=== PATIENT | male | born 1960 | race Caucasian/White ===

== ENCOUNTER 2018-01-24 21:03 | Observation (INO) ==
--- NOTE | 2018-01-24 23:58 | XR ---
EXAM DATE: 01/24/2018 11:54 PM EDT AGE/SEX: 58 years / Male INDICATIONS: Shortness of breath. CLINICAL DATA: This is the patient's initial encounter. Patient reports that signs and symptoms have been present for 2 days and indicates a pain score of 0/10. MEDICAL/SURGICAL HISTORY: None. None. COMPARISON: No prior exams available for comparison. FINDINGS: 2 frontal views of the chest reveal a 5.2 cm smoothly marginated superior mediastinal mass occupying the medial aspects of the left apex. The remaining lungs are clear. No infiltrate or effusion. Heart is normal in size. A degenerative spine. CONCLUSION: 5.2 cm superior mediastinal mass. CT with IV contrast can be performed to further assess if clinicall y warranted. Electronically signed by: Herbie Brenner MD 01/24/2018 11:57 PM EDT
[2018-01-25 00:10] LABS: Baso # (Auto) 0.1 th/mm3 (0.0-0.2); Baso % (Auto) 0.6 % (0.0-2.0); Eos # (Auto) 0.1 th/mm3 (0.0-0.4); Eos % (Auto) 0.6 % (0.0-4.0); Hematocrit 48.8 % (39.0-51.0); Hemoglobin 17.2 gm/dL (13.0-17.0); Lymph # (Auto) 1.4 th/mm3 (1.0-4.8); Mean Corpuscular HGB Conc 35.3 % (32.0-36.0); Mean Corpuscular Volume 87.8 fL (80.0-100.0); Mean Platelet Volume 8.8 fL (7.0-11.0); Mono # (Auto) 0.6 th/mm3 (0.0-0.9); Mono % (Auto) 5.2 % (0.0-8.0); Neut # (Auto) 9.2 th/mm3 (1.8-7.7); Neut % (Auto) 81.6 % (16.0-70.0); Platelet Count 216 th/mm3 (150-450); Red Blood Count 5.56 mil/mm3 (4.50-5.90); Red Cell Distribution Width 14.4 % (11.6-17.2); White Blood Count 11.3 th/mm3 (4.0-11.0)
[2018-01-25 01:10] LABS: Alanine Aminotransferase 35 U/L (12-78); Albumin 3.5 g/dL (3.4-5.0); Anion Gap 7 meq/L (5-15); Aspartate Aminotransferase 33 U/L (15-37); Blood Urea Nitrogen 10 mg/dL (7-18); Chloride 106 meq/L (98-107); Glomerular Filtration Rate Greater Than 89 mL/min (>89); Glucose,Random 92 mg/dL (74-106); Lipase 89 U/L (73-393); Magnesium 1.9 mg/dL (1.5-2.5); Potassium 3.9 meq/L (3.5-5.1); Sodium 142 meq/L (136-145)
[2018-01-25 01:12] LABS: Alkaline Phosphatase 113 U/L (45-117); Total Protein 6.6 g/dL (6.4-8.2)
[2018-01-25 01:13] LABS: Alcohol 76 mg/dL (0-5)
--- NOTE | 2018-01-25 03:58 | CT ---
EXAM DATE: 01/25/2018 3:43 AM EDT AGE/SEX: 58 years / Male INDICATIONS: Shortness of breath and cough. CLINICAL DATA: This is the patient's initial encounter. Patient reports that signs and symptoms have been present for 1 day and indicates a pain score of 4/10. MEDICAL/SURGICAL HISTORY: Seizures. None. RADIATION DOSE: 17.57 CTDI (mGy) COMPARISON: No prior exams available for comparison. TECHNIQUE: Volumetric scanning was performed using a multi-row detector CT scanner during bolus infu osito of 73 ml Omnipaque 350 (iohexol) nonionic water-soluble contrast as a single exam dose. The dejan a was post processed with a variety of visualization algorithms including full volume maximum intensi ty projection and sliding thin slab reformation. Using automated exposure control and adjustment of t he mA and/or kV according to patient size, radiation dose was kept as low as reasonably achievable to obtain optimal diagnostic quality images. DICOM format image data is available electronically for r eview and comparison. FINDINGS: Pulmonary Arteries: No filling defects are seen in the pulmonary arteries out to the subsegmental ve ssels. The left and right pulmonary arteries are normal in diameter. Lung: Emphysematous changes. There is an 8mm cavitary nodular density within the central portions of the left upper lobe. The lesion shows a mildly thickened wall without air-fluid level. No surroundin g inflammatory change.. Effusion: None. Mediastinum: A 5.2 x 5.0 x 3.6 cm smoothly marginated and homogeneous mass is seen involving the par aspinal soft tissues on the left within the superior mediastinum. The adjacent bony structures are un remarkable. The lesion extends slightly towards the T2 neural foramen on the left but does not quite extend into the neural foramen. I see no widening of the neural foramen. No bony destruction observed within the adjacent paraspinal structures.. Other: The axilla is unremarkable. CONCLUSION: 1. 5.2 cm paraspinal mass on the left correlates to the finding seen on the recent chest x-ray. The exact etiology is uncertain. It could relate to a schwannoma as it does extend towards the left T2 ne ural foramen. I cannot exclude other etiologies including malignancy. An outpatient follow-up PET/CT is suggested to evaluate the metabolic nature of this lesion. This lesion would be percutaneously acc essible for biopsy. 2. 8 mm cavitary nodule involving the central portion of the left upper lobe. Differential diagnosti c considerations include prior infection versus malignancy. This lesion can also be assessed at the t giovanni of PET/CT. 3. Emphysematous change. 4. No pulmonary emboli. Electronically signed by: Herbie Brenner MD 01/25/2018 3:57 AM EDT
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
[2018-01-25] MEDS ORDERED: Bisacodyl 10 MG Supp RECTAL PRN (04:37)
[2018-01-25] MEDS ORDERED: Haloperidol Inj 5 MG/ML Ampul IV.PUSH PRN (04:39)
[2018-01-25] MEDS ORDERED: LORazepam 1 MG Tablet PO PRN (04:39)
[2018-01-25] MEDS: Sod Chloride 0.9% Inj 1,000 ML IV.CONT SCH ×2 (07:01→17:59)
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
[2018-01-25] MEDS: Folic Acid 1 MG Tablet PO SCH (09:02)
[2018-01-25] MEDS: Senna/Docusate Sodium 8.6/50 MG Tablet PO SCH ×2 (09:02→21:29)
[2018-01-25] MEDS: Multivitamin/Minerals Therapeutic Tablet PO SCH (10:24)
[2018-01-25] MEDS ORDERED: Metoprolol Tartrate 25 MG Tablet PO SCH (21:00)
[2018-01-26] MEDS: Sod Chloride 0.9% Inj 1,000 ML IV.CONT SCH (05:15)
[2018-01-26 07:40] VITALS: BP 135/35; RESP 16; TEMP 97.7; O2SAT 97
--- NOTE | 2018-01-26 08:31 | P.PN ---
Subjective Interval history: awake and alert, no complains no chest discomfort telemtry- sinus rate- in the 50s- low 60s Physical Exam Vital signs: Vital Signs 01/25/18 11:30 01/25/18 15:53 01/25/18 19:55 Temperature 98.2 F 98.1 F 98.0 F Pulse Rate 83 65 63 Respiratory Rate 16 16 16 Blood Pressure 162/100 H 142/85 H 142/81 H Pulse Oximetry 97 96 99 01/25/18 20:00 01/26/18 00:00 01/26/18 02:10 Temperature Pulse Rate 60 60 54 L Respiratory Rate 22 Blood Pressure 155/85 H Pulse Oximetry 98 01/26/18 07:37 Temperature 97.7 F Pulse Rate 59 L Respiratory Rate 16 Blood Pressure 135/35 L Pulse Oximetry 97 Intake & Output 01/25/18 01/26/18 01/26/18 18:59 06:59 18:59 Intake Total 958 / 958 1000 / 1000 Balance 958 / 958 1000 / 1000 Weight 83.915 kg Intake: IV 958 / 958 1000 / 1000 NS Inj 1,000 ML @ 50 mls/hr IV. 958 / 958 1000 / 1000 CONT .Q20H S[facility] Rx#:[id number] Other: # Voids 1 Weight On Admission 83.915 kg Results - Labs CBC & Chem 7: 01/26/18 09:53 01/26/18 09:53 Assessment and Plan - Plan 58-year-old male known history of chronic alcoholism presenting with DTs with history of chronic alcoholism - Relapse. Patient placed on C1wa protocol Patient states familiar with treatment programs and has all the information. home with po [employer]ir[employer] scripts History of hypertension -not on meds. elevated Bps and TAcycardia on admission from DTs- As needed clonidine. Lopressor 12.5 mg po bid- will DC- HR goes down into 50s - sinus - change to amlodipine 2.5 mg po daily - start on po Librium Incidental chest mass. -Recommend outpatient PET scan to further evaluate this. - Patient states that he and was informed about this last evening and she is setting up an appointment -her PCP for further workup- today. Per patient his is arranging for this. Chronic smoker patient counseled extensively PT eval and treat up and ambulate. if comes- will talk to her- DC plans very involved with care - s/w her DC home today manuel appt for chest mass evaluation today ff up with PCP- d/w about problenm starting him on some antidepressant- "no drive-" she will d/w his PCP
[2018-01-26] MEDS: Senna/Docusate Sodium 8.6/50 MG Tablet PO SCH (08:52)
[2018-01-26] MEDS: Folic Acid 1 MG Tablet PO SCH (08:52)
[2018-01-26] MEDS: Multivitamin/Minerals Therapeutic Tablet PO SCH (08:52)
[2018-01-26] MEDS ORDERED: amLODIPine 5 MG Tablet PO SCH (09:00)
[2018-01-26 10:57] LABS: Baso % (Auto) 0.4 % (0.0-2.0); Eos # (Auto) 0.1 th/mm3 (0.0-0.4); Eos % (Auto) 2.3 % (0.0-4.0); Hematocrit 46.2 % (39.0-51.0); Hemoglobin 15.6 gm/dL (13.0-17.0); Lymph % (Auto) 15.7 % (9.0-44.0); Mean Corpuscular HGB Conc 33.8 % (32.0-36.0); Mean Corpuscular Hemoglobin 30.6 pg (27.0-34.0); Mean Corpuscular Volume 90.5 fL (80.0-100.0); Mono # (Auto) 0.5 th/mm3 (0.0-0.9); Mono % (Auto) 8.2 % (0.0-8.0); Neut # (Auto) 4.5 th/mm3 (1.8-7.7); Neut % (Auto) 73.4 % (16.0-70.0); Platelet Count 143 th/mm3 (150-450); Red Cell Distribution Width 14.4 % (11.6-17.2); White Blood Count 6.2 th/mm3 (4.0-11.0)
[2018-01-26 11:25] LABS: Alanine Aminotransferase 28 U/L (12-78); Albumin 3.1 g/dL (3.4-5.0); Anion Gap 5 meq/L (5-15); Aspartate Aminotransferase 25 U/L (15-37); Blood Urea Nitrogen 8 mg/dL (7-18); Calcium 9.7 mg/dL (8.5-10.1); Carbon Dioxide 25.8 meq/L (21.0-32.0); Chloride 108 meq/L (98-107); Glomerular Filtration Rate Greater Than 89 mL/min (>89); Glucose,Random 87 mg/dL (74-106); Potassium 4.2 meq/L (3.5-5.1); Sodium 139 meq/L (136-145)
[2018-01-26 11:27] LABS: Alkaline Phosphatase 109 U/L (45-117); Total Protein 6.3 g/dL (6.4-8.2)
[2018-01-26 11:35] VITALS: PULSE 52
== END 2018-01-26 15:03 | disposition home or self-care (01) ==
LOC: NEPGCP 21:03 → NEDA 21:03 → NEPC 21:03 → NEDH 01-25 09:52 → NEPGCP 01-25 11:25
PROVIDERS: ADMIT Internal Medicine; ATTEND Internal Medicine

== ENCOUNTER 2018-03-21 05:35 | Inpatient (IN) ==
[2018-03-21] MEDS ORDERED: Metoprolol Tartrate 25 MG Tablet PO ONE (05:57)
[2018-03-21] MEDS ORDERED: Chlorhexidine Gluconate 2% 1 Pack (2 Cloths) TOPICAL ONE (05:57)
[2018-03-21] MEDS ORDERED: Sodium Chlor 0.9% Inj 500 ML IV.SIG SCH (06:00)
[2018-03-21] MEDS ORDERED: Bupivacaine 0.5% Inj 50 ML MDV Vial ONE (06:43)
[2018-03-21] MEDS ORDERED: ceFAZolin 2 GM Premix Inj 2 GM/50 ML PIGGYBACK IV.SIG ONE (06:43)
[2018-03-21] MEDS ORDERED: Ketamine Inj 50 MG/5 ML Syringe IV.PUSH ONE (06:49)
[2018-03-21] MEDS ORDERED: Sodium Chlor 0.9% Inj 20 ML, Bupivacaine Liposo PF 1.3% Inj 20 ML, Dexamethasone PF Inj... IRRIGATION ONE ×4 (07:00)
[2018-03-21] MEDS ORDERED: Lidocaine PF 1% Inj 5 ML Syringe OTHER ONE (07:32)
[2018-03-21] MEDS ORDERED: Normosol-R pH 7.4 Inj 1,000 ML IV.CONT ONE (07:32)
[2018-03-21] MEDS ORDERED: Neostigmine Inj 5 MG/5 ML Syringe IV.PUSH ONE (07:32)
[2018-03-21] MEDS ORDERED: Dextrose 5%/Lactated Ringer's 1,000 ML IV.CONT ONE (07:32)
[2018-03-21] MEDS ORDERED: Glycopyrrolate Inj 1 MG/5 ML Syringe IV.PUSH ONE (07:32)
[2018-03-21] MEDS ORDERED: Phenylephrine/NS 1000 MCG/10ML Syringe IV.PUSH ONE (07:32)
[2018-03-21] MEDS ORDERED: Bisacodyl 10 MG Supp RECTAL PRN (10:14)
[2018-03-21] MEDS ORDERED: Post-op Orders (for Pharmacy) OTHER STA (10:14)
[2018-03-21] MEDS ORDERED: Acetaminophen 325 MG Tablet PO PRN (10:14)
--- NOTE | 2018-03-21 10:26 | P.OP ---
Date of procedure: 03/21/18 Anesthesia: GETA Surgeon: Nataliia Baker MD Operation and Findings: PREOPERATIVE DIAGNOSIS 1. Left large Posterior Mediastinal Mass-Schwannoma 2. Aortopulmonary window lymphadenopathy 3. COPD POSTOPERATIVE DIAGNOSIS same PROCEDURES 1. Left video-assisted thoracoscopic surgery (VATS) 2. Left Posterolateral Muscle Sparing Thoracotomy 2. Resection of posterior mediastinal mass 3. Aortopulmonary window Lymph Node Excision 4. Cryo nerve block 5. Pharmacologic Intercostal Nerve Block SURGEON Nataliia Baker MD GEOSPATIAL PROGRAM MANAGEMENT OFFICER JAYLEN Morocho ANESTHESIA General double-lumen endotracheal. LABORER DEMOLITION Julienne Mello, AVERY Frausto MD DRAINS [address] COUNTS Needle, sponge, and instrument counts were correct. COMPLICATIONS None. INDICATION FOR PROCEDURE The patient is a 58yo gentleman with a large left posterior mediastinal mass consistent with a Schwannoma, presenting for surgical resection of above pathology. DESCRIPTION OF PROCEDURE The patient was brought to the operating suite and placed in supine position. Following satisfactory induction of general double-lumen endotracheal anesthesia , the patient was placed in the right lateral decubitus position. The left chest and surrounding area was then prepped and draped in the usual sterile fashion. A 5 mm camera port was then placed in the eighth intercostal space mid axillary line. Exploration of the left hemithorax revealed a large posterior mediastinal mass abutting but not invading the descending thoracic aorta. Plans were made to proceed with a formal resection. A standard muscle- sparing posterolateral thoracotomy was performed and the serratus anterior muscle spared. The pleural space was entered. The 5 cm posterior mediastinal mass was then excised en bloc. It appeared to be emanating from the T2 nerve sheath which was transected with the mass. Specimen was removed from the chest. Strict hemostasis was ensured. Attention was then directed towards the aorta from the window lymph node which was noted to be PET active. The pleura overlying the lymph node was excised care being taken to avoid injury to the phrenic and recurrent laryngeal nerves. The lymph node was dissected free and excised en bloc and sent for histologic analysis. At this point the closure was undertaken. A 28-Bel[place]an chest tube was placed. Cryo nerve block was performed using the AtriCure Cryo-probe at the level of the incision as well as two intercostal spaces above and below. Tissell was sprayed along the bed of the specimen. Pharmacologic intercostal nerve block was performed at the level of the incision and 2 rib spaces above and below using Exparel with Decadron solution. The pericostal space was approximated with interrupted #1 Vicryl sutures in a pericostal fashion. The serratus fascia and Latissimus dorsi were closed with running 0-Vicryl and the remaining wounds closed with 3-0, and 4-0 Monocryl. The patient tolerated the procedure well and postoperatively went to the PACU in stable condition.
[2018-03-21] MEDS ORDERED: fentaNYL Citrate Inj 100 MCG/2 ML Ampul ONE (10:43)
[2018-03-21] MEDS ORDERED: *morphine SULFATE 8 MG/ML PERIprocedure ONLY ONE ×2 (11:09→11:20)
--- NOTE | 2018-03-21 11:36 | XR ---
EXAM DATE: 03/21/2018 10:14 AM EDT AGE/SEX: 58 years / Male INDICATIONS: Post-op Thoracotomy, left side chest. CLINICAL DATA: This is the patient's initial encounter. Patient reports that signs and symptoms have been present for 1 day and indicates a pain score of 7/10. MEDICAL/SURGICAL HISTORY: Hypertension. None. COMPARISON: C, CHEST 2V PA&LAT, 03/14/2018. . FINDINGS: Interval postoperative features of left-sided thoracotomy with left apical chest tube in place. There is a trace amount of left apical pneumothorax. Left apical mass is no longer visualized. Cardiomedia stinal contours are within normal limits. Small amount of subcutaneous emphysema in the left chest w all. CONCLUSION: 1. Expected postoperative features of left-sided thoracotomy with left apical chest tube in place an d trace left apical pneumothorax. Electronically signed by: Esequiel Camacho MD 03/21/2018 11:34 AM EDT
[2018-03-21] MEDS: Ketorolac Inj 30 MG/ML (IVP) Vial IV.PUSH SCH ×2 (11:37→17:00)
--- NOTE | 2018-03-21 12:49 | P.PNCV ---
- Note Subjective/Hospital Course: 58/ male initially seen by Dr Baker in [facility] 03/07/18 presented with new findings of a large posterior mediastinal mass . Recovering alcoholic and was admitted for detox in Jan 2018, after a relapse. CXR at that time revealed left apical lung abnormality. Pet scan demonstrated a 5.2cm Schannoma of the T2 nerve seat with associated AP window and hilar PET positive lymph nodes PMH: alcoholism, COPD, Chronic nicotine use 03/21 pt electively admitted for surgery PREOPERATIVE DIAGNOSIS 1. Left large Posterior Mediastinal Mass-Schwannoma 2. Aortopulmonary window lymphadenopathy 3. COPD POSTOPERATIVE DIAGNOSIS same PROCEDURES 1. Left video-assisted thoracoscopic surgery (VATS) 2. Left Posterolateral Muscle Sparing Thoracotomy 2. Resection of posterior mediastinal mass 3. Aortopulmonary window Lymph Node Excision Objective: Vital Signs - 24 hr 03/21/18 06:10 03/21/18 10:31 03/21/18 10:45 Temperature 97.7 F 97.4 F L Pulse Rate 64 80 68 Respiratory Rate 20 14 11 L Blood Pressure 135/89 116/75 113/77 Pulse Oximetry 99 98 98 03/21/18 11:00 03/21/18 11:15 03/21/18 11:30 Temperature Pulse Rate 77 75 66 Respiratory Rate 18 15 12 Blood Pressure 108/68 128/78 107/71 Pulse Oximetry 98 100 98 03/21/18 11:45 03/21/18 12:15 Temperature 97.2 F L 97.4 F L Pulse Rate 69 70 Respiratory Rate 14 18 Blood Pressure 112/71 98/64 L Pulse Oximetry 98 97 Labs: Laboratory Results - last 12 hr 03/21/18 03/21/18 06:25 07:17 Blood Type A Positive Blood Type Recheck Required Antibody Screen Negative MTS Gel Crossmatch See Detail Bld Prod Order Comment
[2018-03-21] MEDS: Senna/Docusate Sodium 8.6/50 MG Tablet PO SCH (20:38)
[2018-03-21] MEDS ORDERED: traZODone 100 MG Tablet PO SCH (21:00)
[2018-03-21] MEDS ORDERED: Mirtazapine 15 MG Tablet PO SCH (21:00)
[2018-03-22] MEDS: Ketorolac Inj 30 MG/ML (IVP) Vial IV.PUSH SCH ×2 (00:03→05:52)
[2018-03-22 05:41] LABS: Hematocrit 40.4 % (39.0-51.0); Hemoglobin 13.7 gm/dL (13.0-17.0); Lymph # (Auto) 0.8 th/mm3 (1.0-4.8); Lymph % (Auto) 5.4 % (9.0-44.0); Mean Corpuscular HGB Conc 33.8 % (32.0-36.0); Mean Corpuscular Hemoglobin 30.6 pg (27.0-34.0); Mean Corpuscular Volume 90.5 fL (80.0-100.0); Mean Platelet Volume 9.6 fL (7.0-11.0); Mono # (Auto) 0.9 th/mm3 (0.0-0.9); Mono % (Auto) 5.7 % (0.0-8.0); Neut # (Auto) 13.3 th/mm3 (1.8-7.7); Neut % (Auto) 88.9 % (16.0-70.0); Platelet Count 196 th/mm3 (150-450); Red Blood Count 4.46 mil/mm3 (4.50-5.90); Red Cell Distribution Width 14.5 % (11.6-17.2); White Blood Count 14.9 th/mm3 (4.0-11.0)
[2018-03-22 06:10] LABS: Anion Gap 4 meq/L (5-15); Blood Urea Nitrogen 11 mg/dL (7-18); Calcium 10.1 mg/dL (8.5-10.1); Carbon Dioxide 26.8 meq/L (21.0-32.0); Chloride 108 meq/L (98-107); Glomerular Filtration Rate Greater Than 89 mL/min (>89); Glucose,Random 121 mg/dL (74-106); Potassium 4.6 meq/L (3.5-5.1); Sodium 139 meq/L (136-145)
[2018-03-22 07:53] VITALS: RESP 18; O2SAT 98
[2018-03-22] MEDS: Senna/Docusate Sodium 8.6/50 MG Tablet PO SCH (08:54)
[2018-03-22] MEDS ORDERED: Folic Acid 1 MG Tablet PO SCH (09:00)
[2018-03-22] MEDS ORDERED: amLODIPine 5 MG Tablet PO SCH (09:00)
--- NOTE | 2018-03-22 09:33 | P.PNCV ---
- Note Subjective/Hospital Course: 58/ male initially seen by Dr Baker in [facility] 03/07/18 presented with new findings of a large posterior mediastinal mass . Recovering alcoholic and was admitted for detox in Jan 2018, after a relapse. CXR at that time revealed left apical lung abnormality. Pet scan demonstrated a 5.2cm Schannoma of the T2 nerve seat with associated AP window and hilar PET positive lymph nodes PMH: alcoholism, COPD, Chronic nicotine use 03/21 pt electively admitted for surgery PREOPERATIVE DIAGNOSIS 1. Left large Posterior Mediastinal Mass-Schwannoma 2. Aortopulmonary window lymphadenopathy 3. COPD POSTOPERATIVE DIAGNOSIS same PROCEDURES 1. Left video-assisted thoracoscopic surgery (VATS) 2. Left Posterolateral Muscle Sparing Thoracotomy 2. Resection of posterior mediastinal mass 3. Aortopulmonary window Lymph Node Excision 03/22 doing well, pain at incision site 10/13 chest tube site 11/13 last dose of narcotic yesterday/ currently receiving IV Tylenol also prn Toradol encourage pulm toileting OOB ambulate/ drained 80cc/ 12 hrs , but has not ambulated in hallway path pending Objective: Vital Signs - 24 hr 03/21/18 10:31 03/21/18 10:45 03/21/18 11:00 Temperature 97.4 F L Pulse Rate 80 68 77 Respiratory Rate 14 11 L 18 Blood Pressure 116/75 113/77 108/68 Pulse Oximetry 98 98 98 03/21/18 11:15 03/21/18 11:30 03/21/18 11:45 Temperature 97.2 F L Pulse Rate 75 66 69 Respiratory Rate 15 12 14 Blood Pressure 128/78 107/71 112/71 Pulse Oximetry 100 98 98 03/21/18 12:00 03/21/18 12:15 03/21/18 13:00 Temperature 97.4 F L Pulse Rate 68 70 56 L Respiratory Rate 18 Blood Pressure 98/64 L Pulse Oximetry 97 03/21/18 13:09 03/21/18 14:00 03/21/18 15:00 Temperature Pulse Rate 60 68 Respiratory Rate Blood Pressure Pulse Oximetry 98 03/21/18 16:00 03/21/18 17:00 03/21/18 17:48 Temperature 97.5 F L Pulse Rate 63 56 L Respiratory Rate 16 Blood Pressure 100/67 Pulse Oximetry 97 97 03/21/18 18:00 03/21/18 19:15 03/21/18 20:00 Temperature 97.5 F L Pulse Rate 56 L 72 64 Respiratory Rate 22 Blood Pressure 109/73 Pulse Oximetry 97 03/21/18 21:00 03/21/18 22:00 03/21/18 23:00 Temperature Pulse Rate 54 L 58 L 57 L Respiratory Rate Blood Pressure Pulse Oximetry 03/22/18 00:00 03/22/18 01:00 03/22/18 02:00 Temperature 97.5 F L Pulse Rate 56 L 56 L 58 L Respiratory Rate 22 Blood Pressure 106/66 Pulse Oximetry 97 03/22/18 03:06 03/22/18 04:00 03/22/18 05:00 Temperature 97.6 F Pulse Rate 58 L 56 L 56 L Respiratory Rate 22 Blood Pressure 94/54 L Pulse Oximetry 97 03/22/18 06:00 03/22/18 07:51 Temperature 97.4 F L Pulse Rate 54 L 55 L Respiratory Rate 18 Blood Pressure 98/56 L Pulse Oximetry 98 GENERAL: A&O x 3 SKIN: Warm and dry. incision intact left posterior chest wall HEAD: Normocephalic. EYES: No scleral icterus. No injection or drainage. NECK: Supple, trachea midline. No JVD or lymphadenopathy. CARDIOVASCULAR: Regular rate and rhythm without murmurs, gallops, or rubs. RESPIRATORY: Breath sounds equal bilaterally. No accessory muscle use. few coarse breath sounds / chest tube to wall suction / no air leak GASTROINTESTINAL: Abdomen soft, non-tender, nondistended. MUSCULOSKELETAL: No cyanosis, or edema. BACK: Nontender without obvious deformity. No CVA tenderness. Labs: Laboratory Results - last 12 hr 03/22/18 03/22/18 05:09 05:09 WBC 14.9 H RBC 4.46 L Hgb 13.7 Hct 40.4 MCV 90.5 MCH 30.6 MCHC 33.8 RDW 14.5 Plt Count 196 MPV 9.6 Neut % (Auto) 88.9 H Lymph % (Auto) 5.4 L [place] % (Auto) 5.7 Eos % (Auto) 0.0 Baso % (Auto) 0.0 Neut # (Auto) 13.3 H Lymph # (Auto) 0.8 L [place] # (Auto) 0.9 Eos # (Auto) 0.0 Baso # (Auto) 0.0 WBC Differential . Differential Comment Auto diff final Sodium 139 Potassium 4.6 Chloride 108 H Carbon Dioxide 26.8 Anion Gap 4 L BUN 11 Creatinine 0.80 Estimated GFR Greater than 89 Random Glucose 121 H Calcium 10.1 Result Diagrams: 03/22/18 05:09 03/22/18 05:09 - Plan (3) S/P thoracotomy Plan: pulm toielting pain control OOB ambulate leave chest tube in for now path pending
--- NOTE | 2018-03-22 09:37 | P.DCO ---
- Diagnosis (1) Paraspinal mass Status: Acute (2) Mass of lung Status: Acute (3) S/P thoracotomy Status: Acute - Home Health Nursing Order: Medical education, Signs/symptoms of disease process, Wound care and dressing changes, Nursing assessment with vital signs Instructions: Thoracic Surgery patients Mandatory frequency Assess and evaluation, 2-3 x a week for one week Initial visit 1. Review post chest surgery instructions chest precautions, Activity, Elastic hose, Incision care, Driving, Incentive spirometry, Smoking, [place] , Work and other) 2. Need Betadine to paint incision 3. Medication reconciliation 4. Importance of follow up care/ check on appointments 5. Make calendar record temperature daily 6. When to call Home nurse, review instructions, phone list 7. Incentive Spirometry, demonstration Visit 1- Begin discharge instruction for patient family and/ or caregiver using teach back method- 1. Signs and symptoms of infection 2. Disease characteristics 3. Medicines and side effects 4. Foods and nutrition/ appetite 5. Infection control/ hand washing/ hygiene Visit 2- Continue teaching 1. Discharge instructions- include additional information on smoking cessation , Visit 3- Continue teaching- 1. Cough and deep breathing, incision monitoring. For any questions please call : / [employer] [facility] Cardiothoracic Surgery Incentive spirometry Q1 hr x 10, while awake, also use acapella device hourly whole Chest wall precautions: NO pushing or pulling, ( pt must use chest pillow support chest with all activities and with coughing Daily incision care: ok to shower ( 48hrs after chest tube removed) and then daily, no tub bath. Wash all incisions with liquid dial soap, clean wash cloth to each site, rinse and pat dry. Observe for any signs of infection, such as drainage which is dark yellow, roldan, green or foul smelling. Immediately report to the surgeon any drainage from the chest incision, or legs, and for any abnormal drainage from the chest tube sites. Notify surgeon if any temp > 101.5 degrees F. When specialty dressing removed/ or if you do not have one, continue to shower daily as above, then rinse and pat incision dry and paint with betadine daily x 5 days. Allow steri strips to fall off if you have any. Avoid lotions, creams, salves, oils, etc. for the first month F/U appointment: as per [place] instructions: PCP in 2 weeks, CV surgeon 2 weeks, Automation Architect 3-4 weeks For any questions regarding incisions/ dressing / meds / post op care or above Symptoms, Tuesday 8am-5pm Heart & Vascular Surgery Office ( Dr. Baker & Dr. Bains), After Hours / Nights (5pm -8am) Weekends and Holidays Please call [facility] Cardiac Intermediate Care Unit (CIC) Charge Nurse - Case Management Consult Yes - Certification I have seen patient Louis Pineda on 03/22/18. My clinical findings support the need for the requested home health care services because: Deconditioned with increased weakness I certify that my clinical findings support that this patient is homebound because: Post-op weakness, Hx COPD - exertion dyspnea/weakness
--- NOTE | 2018-03-22 11:03 | XR ---
EXAM DATE: 03/22/2018 10:14 AM EDT AGE/SEX: 58 years / Male INDICATIONS: Post thoracotomy left side 2 days ago. CLINICAL DATA: This is the patient's subsequent encounter. Patient reports that signs and symptoms h ave been present for 2 days and indicates a pain score of 4/10. MEDICAL/SURGICAL HISTORY: Hypertension. None. COMPARISON: [facility] [place] CHEST 1V SINGLE AP, 03/21/2018. . FINDINGS: Large bore chest tube in place on the left with minimal subcutaneous emphysema. Trace left pneumothor ax. Right lung clear The heart and pulmonary vascularity are normal. CONCLUSION: Left chest tube in good position trace left pneumothorax. Electronically signed by: Adrian Perez MD 03/22/2018 11:01 AM EDT
--- NOTE | 2018-03-22 11:19 | P.DS ---
Date of admission: 03/21/18 05:35 Primary care physician: Rakesh Barahona JR DO Attending physician on discharge: Nataliia Baker Anticipated date of discharge: 03/22/18 Brief History from admission: 58/ male initially seen by Dr Baker in Office 03/07/18 presented with new findings of a large posterior mediastinal mass . Recovering alcoholic and was admitted for detox in Jan 2018, after a relapse. CXR at that time revealed left apical lung abnormality. Pet scan demonstrated a 5.2cm Schannoma of the T2 nerve seat with associated AP window and hilar PET positive lymph nodes PMH: alcoholism, COPD, Chronic nicotine use 03/21 pt electively admitted for surgery PREOPERATIVE DIAGNOSIS 1. Left large Posterior Mediastinal Mass-Schwannoma 2. Aortopulmonary window lymphadenopathy 3. COPD Patient update on day of discharge: pt doing well, chest tube removed without difficulty await f/u CXR if stable then will dc home DS: Diagnosis - Discharge Diagnosis (1) Paraspinal mass Status: Acute (2) Mass of lung Status: Acute (3) S/P thoracotomy Status: Acute (4) Alcohol abuse Status: Acute DS: Medications - Discharge Medications Prescriptions: hydrocodone-acetaminophen 1 tab PO Q4H PRN #30 tab PRN Reason: Pain Scale 3 To 5 DS: Summary Hospital Course: 58/ male initially seen by Dr Baker in Office 03/07/18 presented with new findings of a large posterior mediastinal mass . Recovering alcoholic and was admitted for detox in Jan 2018, after a relapse. CXR at that time revealed left apical lung abnormality. Pet scan demonstrated a 5.2cm Schannoma of the T2 nerve seat with associated AP window and hilar PET positive lymph nodes PMH: alcoholism, COPD, Chronic nicotine use 03/21 pt electively admitted for surgery PREOPERATIVE DIAGNOSIS 1. Left large Posterior Mediastinal Mass-Schwannoma 2. Aortopulmonary window lymphadenopathy 3. COPD POSTOPERATIVE DIAGNOSIS same PROCEDURES 1. Left video-assisted thoracoscopic surgery (VATS) 2. Left Posterolateral Muscle Sparing Thoracotomy 2. Resection of posterior mediastinal mass 3. Aortopulmonary window Lymph Node Excision 03/22 doing well, pain at incision site 5/10 chest tube site 6/10 last dose of narcotic yesterday/ currently receiving IV Tylenol also prn Toradol encourage pulm toileting OOB ambulate/ drained 80cc/ 12 hrs , but has not ambulated in hallway / no air leak path pending chest tube dc without difficulty await f/u CXR if stable then dc home - Time Spent with Patient Total time spent providing and/or coordinating discharge services: Greater than 30 minutes - Quality: VTE Deep Vein Thrombosis/Pulmonary Embolism Present on Admission: No Exam Vital signs: Vital Signs 03/21/18 11:15 03/21/18 11:30 03/21/18 11:45 Temperature 97.2 F L Pulse Rate 75 66 69 Respiratory Rate 15 12 14 Blood Pressure 128/78 107/71 112/71 Pulse Oximetry 100 98 98 03/21/18 12:00 03/21/18 12:15 03/21/18 13:00 Temperature 97.4 F L Pulse Rate 68 70 56 L Respiratory Rate 18 Blood Pressure 98/64 L Pulse Oximetry 97 03/21/18 13:09 03/21/18 14:00 03/21/18 15:00 Temperature Pulse Rate 60 68 Respiratory Rate Blood Pressure Pulse Oximetry 98 03/21/18 16:00 03/21/18 17:00 03/21/18 17:48 Temperature 97.5 F L Pulse Rate 63 56 L Respiratory Rate 16 Blood Pressure 100/67 Pulse Oximetry 97 97 03/21/18 18:00 03/21/18 19:15 03/21/18 20:00 Temperature 97.5 F L Pulse Rate 56 L 72 64 Respiratory Rate 22 Blood Pressure 109/73 Pulse Oximetry 97 03/21/18 21:00 03/21/18 22:00 03/21/18 23:00 Temperature Pulse Rate 54 L 58 L 57 L Respiratory Rate Blood Pressure Pulse Oximetry 03/22/18 00:00 03/22/18 01:00 03/22/18 02:00 Temperature 97.5 F L Pulse Rate 56 L 56 L 58 L Respiratory Rate 22 Blood Pressure 106/66 Pulse Oximetry 97 03/22/18 03:06 03/22/18 04:00 03/22/18 05:00 Temperature 97.6 F Pulse Rate 58 L 56 L 56 L Respiratory Rate 22 Blood Pressure 94/54 L Pulse Oximetry 97 03/22/18 06:00 03/22/18 07:00 03/22/18 07:51 Temperature 97.4 F L Pulse Rate 54 L 54 L 55 L Respiratory Rate 18 Blood Pressure 98/56 L Pulse Oximetry 98 03/22/18 08:00 03/22/18 09:00 03/22/18 10:00 Temperature Pulse Rate 52 L 62 55 L Respiratory Rate Blood Pressure Pulse Oximetry 03/22/18 11:00 Temperature Pulse Rate 60 Respiratory Rate Blood Pressure Pulse Oximetry Intake & Output 03/21/18 03/22/18 03/22/18 18:59 06:59 18:59 Intake Total 2690 / 2690 580 / 580 100 / 100 Output Total 532 / 532 980 / 980 Balance 2158 / 2158 -400 / -400 100 / 100 Weight 92 kg Intake: IV 150 / 150 100 / 100 100 / 100 Ancef 2 GM Premix Inj 2 gm In 50 / 50 50 ml @ 0 mls/hr IV.SIG .STK- MED ONE Rx#:[id number] Ancef Inj 1,000 MG In NS Inj 100 / 100 100 / 100 100 / 100 100 ML @ 200 mls/hr IV.SIG Q8H SAVANA Rx#:[id number] Oral 940 / 940 480 / 480 Anesthesia Amount 1600 / 1600 Output: Urine 900 / 900 Estimated Blood Loss 75 / 75 Urine Amount (Catheter) 425 / 425 Indwelling Urethral Catheter 425 / 425 Chest Tube Drainage 32 / 80 / 80 #1 Left Pleural 80 / 80 Other: Date of Last Bowel Movement 03/21/18 - Constitutional no acute distress - Routine HEENT Exam Head: Present: normocephalic, atraumatic - Routine Neck Exam Present: supple, full ROM - Routine Chest/Breast/Axilla Exam Chest wall: Present: tenderness - Routine Respiratory Exam Present: CTA bilaterally - Routine Cardiovascular Exam Present: RRR, S1, S2 - Routine Abdominal Exam Present: soft, normoactive bowel sounds - Routine Extremities Exam Present: full ROM, pulses intact, normal capillary refill - Routine Skin Exam Present: intact, wounds Comments: vaseline dressing to left chest tube site left posterior chest wall incision intact and well approximated - Routine Neurological Exam Present: alert, oriented X3, CN II-XII intact Results Procedures completed during hospitalization: Date of procedure: 03/21/18 Anesthesia: SERENITYA Surgeon: Nataliia Baker MD Operation and Findings: PREOPERATIVE DIAGNOSIS 1. Left large Posterior Mediastinal Mass-Schwannoma 2. Aortopulmonary window lymphadenopathy 3. COPD POSTOPERATIVE DIAGNOSIS same PROCEDURES 1. Left video-assisted thoracoscopic surgery (VATS) 2. Left Posterolateral Muscle Sparing Thoracotomy 2. Resection of posterior mediastinal mass 3. Aortopulmonary window Lymph Node Excision 4. Cryo nerve block 5. Pharmacologic Intercostal Nerve Block Pending studies at discharge: Pending at discharge 03/21/18 11:04 Surgical [PTH] Routine Labs on day of discharge: Labs from last 24 hours 03/22/18 03/22/18 03/21/18 05:09 05:09 07:17 WBC 14.9 H RBC 4.46 L Hgb 13.7 Hct 40.4 MCV 90.5 MCH 30.6 MCHC 33.8 RDW 14.5 Plt Count 196 MPV 9.6 Neut % (Auto) 88.9 H Lymph % (Auto) 5.4 L [place] % (Auto) 5.7 Eos % (Auto) 0.0 Baso % (Auto) 0.0 Neut # (Auto) 13.3 H Lymph # (Auto) 0.8 L [place] # (Auto) 0.9 Eos # (Auto) 0.0 Baso # (Auto) 0.0 WBC Differential . Differential Comment Auto diff final Sodium 139 Potassium 4.6 Chloride 108 H Carbon Dioxide 26.8 Anion Gap 4 L BUN 11 Creatinine 0.80 Estimated GFR Greater than 89 Random Glucose 121 H Calcium 10.1 MTS Gel Crossmatch See Detail Bld Prod Order Comment - Impressions ITS Impressions Chest X-Ray 03/22/18 10:14 CONCLUSION: Left chest tube in good position trace left pneumothorax. Discharge Plan - Discharge Disposition Patient Disposition: W/Home Health Service - Discharge Condition Condition: Good - Discharge Order Discharge Orders: Discharge Order (Routine); Ordered 03/22/18 Ordered By: Yoly Gaviria - Discharge Details Anticipated Discharge Date: 03/22/18 Discharge Comment: after cxr resulted and stable - Physicians Team Primary Care Provider: Rakesh Barahona JR Attending Provider: Nataliia Baker Other Providers: Wu Kasper MD - Rxs /Orders / Referrals /Forms Prescriptions: New docusate sodium [Stool Softener] 50 mg Capsule 100 mg PO DAILY Qty: 30 RF: 0 hydrocodone-acetaminophen 5-325 mg Tablet 1 tab PO Q4H PRN (Reason: Pain Scale 3 To 5) Qty: 30 RF: 0 Continue amlodipine [Norvasc] 5 mg tablet 5 mg PO DAILY folic acid 1 mg Tablet 1 mg PO DAILY Qty: 30 RF: 0 mirtazapine [Remeron] 15 mg Tablet 15 mg PO HS [id number]-[id number] [Thera M Plus (ferrous fumarat)] 9 mg iron-400 mcg Tablet 1 tab PO DAILY Qty: 30 RF: 0 trazodone 100 mg Tablet 100 mg PO HS Referrals: Rakesh Barahona JR, [Primary Care Provider] - See Instructions ( Your appointment has been scheduled for [03/29/18] at [11:15 am] If you cannot make this appointment, please call the office to reschedule ) Nataliia Baker MD [Physician] - See Instructions ( Your appointment has been scheduled for [04/03/18] at [1:15 pm] If you cannot make this appointment, please call the office to reschedule ) Wu Kasper MD [Physician] - See Instructions ( Your appointment has been scheduled for [04/05/18] at [3:00 pm] If you cannot make this appointment, please call the office to reschedule ) - Discharge Instructions Patient Printed Instructions: Thoracotomy (DC) Additional Instructions: Incentive spirometry Q1 hr x 10, while awake, also use acapella device hourly whole Chest wall precautions: NO pushing or pulling, ( pt must use chest pillow support chest with all activities and with coughing Daily incision care: ok to shower ( 48hrs after chest tube removed) and then daily, no tub bath. Wash all incisions with liquid dial soap, clean wash cloth to each site, rinse and pat dry. Observe for any signs of infection, such as drainage which is dark yellow, roldan, green or foul smelling. Immediately report to the surgeon any drainage from the chest incision, or legs, and for any abnormal drainage from the chest tube sites. Notify surgeon if any temp > 101.5 degrees F. When specialty dressing removed/ or if you do not have one, continue to shower daily as above, then rinse and pat incision dry and paint with betadine daily x 5 days. Allow steri strips to fall off if you have any. Avoid lotions, creams, salves, oils, etc. for the first month For Dr. Bains patients , please obtain PA & Lat CXR in 2 weeks, results to Dr. Bains ( prescription will be given) ( ) (Tele: ) , F/U appointment: as per [place] instructions: PCP in 2 weeks, CV surgeon 2 weeks, Blueberry Grower 3-4 weeks For any questions regarding incisions/ dressing / meds / post op care or above Symptoms, Tuesday 8am-5pm Heart & Vascular Surgery Office ( Dr. Baker & Dr. Bains), After Hours / Nights (5pm -8am) Weekends and Holidays Please call [facility] Cardiac Intermediate Care Unit (CIC) Charge Nurse
[2018-03-22 11:29] VITALS: BP 111/68; TEMP 97.5
--- NOTE | 2018-03-22 12:41 | XR ---
EXAM DATE: 03/22/2018 12:00 PM EDT AGE/SEX: 58 years / Male INDICATIONS: Evaluate for pneumothorax. Chest tube removal. CLINICAL DATA: This is the patient's subsequent encounter. Patient reports that signs and symptoms h ave been present for 2 days and indicates a pain score of Nonresponsive. MEDICAL/SURGICAL HISTORY: . Emphysema. Hypertension. . COMPARISON: [facility], CHEST 1V SINGLE AP, 03/22/2018. . FINDINGS: Left-sided chest tube has been removed. There is a tiny left apical pneumothorax identified. A small amount of subcutaneous air along the left chest and neck identified. Lungs are clear. Cardiac and med iastinal contours are normal. Osseous structures are intact. CONCLUSION: Tiny left apical pneumothorax, not definitely changed status post chest tube removal. Electronically signed by: Theo Bolanos MD 03/22/2018 12:39 PM EDT
[2018-03-22 13:20] VITALS: PULSE 62
== END 2018-03-22 14:15 | disposition home health service (06) ==
LOC: HSDI 05:35 → HCPC 12:00
PROVIDERS: ADMIT Thoracic Surgery (Cardiothoracic Vascular Surgery); ATTEND Thoracic Surgery (Cardiothoracic Vascular Surgery)
PROC: THOCTMY (2018-03-21 07:32)